=== PATIENT | female | born 1960 ===

== ENCOUNTER 2017-12-03 14:20 | Emergency (ER) | payer OTHER ==
[2017-12-03 14:29] VITALS: BMI 29.2
[2017-12-03 14:32] VITALS: TEMP 98.9; O2SAT 98
--- NOTE | 2017-12-03 15:14 | ED PDOC ---
Arrival/HPI <Senthil Walker - Last Filed: 12/03/17 16:46> <Juan J Carlson - Last Filed: 12/03/17 17:09> - General Chief Complaint: Dizziness/Lightheaded Time Seen by Provider: 12/03/17 14:22 - History of Present Illness Narrative History of Present Illness (Text): Patient is a 57 year old female with PMH of hypothyroidism and fatty liver presenting to the ED with tingling to the right side of the face. Patient states that she went to work today and start feeling tingling that started on her head and radiates only to the left side of her face. Patient also admits to chest tightness when this episodes occur. 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 Patient states that these episodes started this morning and is intermittent. Patient is worried due to a family history of strokes. Her sister had a stroke at age 37 and her father had a stroke at age 36. Patient denies blurry vision, slurring of speech, muscle weakness, ptosis, or other neurological deficits. Patient further denies fevers , chills, shortness of breath, abdominal pain, or urinary symptoms. (Senthil Walker) Past Medical History - Provider Review Nursing Documentation Reviewed: Yes - Travel History Have you recently traveled outside [place] w/in the past 3 mons?: No - Infectious Disease Hx of Infectious Diseases: None - Tetanus Immunization Tetanus Immunization: Unknown - Cardiac Hx Cardiac Disorders: No - Pulmonary Hx Respiratory Disorders: No - Neurological Hx Neurological Disorder: No Hx Headaches: Yes - HEENT Hx HEENT Disorder: No Other/Comment: Reading glasses - Renal Hx Renal Disorder: No - Endocrine/Metabolic Hx Hypothyroidism: Yes (GILL) - Hematological/Oncological Hx Blood Disorders: No - Integumentary Hx Dermatological Disorder: No - Musculoskeletal/Rheumatological Hx Musculoskeletal Disorders: No - Gastrointestinal Hx Gastrointestinal Disorders: Yes Hx Fatty Liver Disease: Yes Other/Comment: Primary Biliary Cihrrosis - Genitourinary/Gynecological Hx Genitourinary Disorders: No - Psychiatric Hx Depression: Yes Hx Substance Use: No - Surgical History Hx Hysterectomy: Yes - Anesthesia Hx Anesthesia: Yes Hx Anesthesia Reactions: No Hx Malignant Hyperthermia: No - Suicidal Assessment Feels Threatened In Home Enviroment: No <Senthil Walker - Last Filed: 12/03/17 16:46> Family/Social History - Physician Review Nursing Documentation Reviewed: Yes Family/Social History: CVA/TIA, Hypertension, Neoplasm/Cancer Smoking Status: Never Smoked Hx Alcohol Use: No Hx Substance Use: No Hx Substance Use Treatment: No <JocyhannySenthil - Last Filed: 12/03/17 16:46> Allergies/Home Meds <Senthil Walker - Last Filed: 12/03/17 16:46> <Juan J Carlson - Last Filed: 12/03/17 17:09> Allergies/Adverse Reactions: Allergies hydromorphone HCl [From Dilaudid] Allergy (Intermediate, Verified 12/03/17 14:33 ) RASH meperidine HCl [From Demerol] Allergy (Intermediate, Verified 12/03/17 14:33) NAUSEA vomitting morphine Allergy (Intermediate, Verified 12/03/17 14:33) RASH Home Medications: Home Meds Medication Instructions Recorded Confirmed Levothyroxine [Synthroid] 88 mcg PO DAILY 12/03/17 12/03/17 Review of Systems - Physician Review All systems were reviewed & negative as marked: Yes - Review of Systems Constitutional: Normal. absent: Fevers, Night Sweats Eyes: Normal. absent: Vision Changes ENT: Normal Respiratory: Normal. absent: SOB, Cough, Wheezing Cardiovascular: Chest Pain (Complains of chest tightness) Gastrointestinal: Normal. absent: Abdominal Pain, Constipation, Diarrhea, Nausea, Vomiting Genitourinary Female: Normal. absent: Dysuria, Frequency, Hematuria Musculoskeletal: Normal Skin: Normal. absent: Rash, Pruritis, Skin Lesions, Laceration Neurological: Headache, Dizziness. absent: Focal Weakness, Speech Changes, Facial Droop Psychiatric: Normal. absent: Anxiety, Depression <Senthil Walker - Last Filed: 12/03/17 16:46> Physical Exam Vital Signs Reviewed: Yes Temperature: Afebrile Blood Pressure: Hypertensive Pulse: Regular Respiratory Rate: Normal Appearance: Positive for: Well-Appearing, Non-Toxic, Comfortable Pain Distress: None Mental Status: Positive for: Alert and Oriented X 3 Finger Stick Blood Glucose: 95 - Systems Exam Head: Present: Atraumatic, Normocephalic Pupils: Present: PERRL Extroacular Muscles: Present: EOMI Conjunctiva: Present: Normal Mouth: Present: Moist Mucous Membranes Respiratory/Chest: Present: Clear to Auscultation, Good Air Exchange. No: Respiratory Distress, Accessory Muscle Use Cardiovascular: Present: Regular Rate and Rhythm, Normal S1, S2. No: Murmurs Abdomen: No: Tenderness, Distention, Peritoneal Signs Upper Extremity: Present: Normal Inspection. No: Cyanosis, Edema Lower Extremity: Present: Normal Inspection. No: Edema Neurological: Present: GCS=15, CN II-XII Intact, Speech Normal, Motor Func Grossly Intact, Normal Sensory Function, Normal Cerebellar Funct, Gait Normal, Memory Normal, Other Skin: Present: Warm, Dry, Normal Color. No: Rashes Psychiatric: Present: Alert, Oriented x 3, Normal Insight, Normal Concentration <Senthil Walker - Last Filed: 12/03/17 16:46> Vital Signs Temp Pulse Resp BP Pulse Ox 12/03/17 16:47 79 18 118/67 98 12/03/17 14:28 98.9 F 85 19 136/85 98 Medical Decision Making <Senthil Walker - Last Filed: 12/03/17 16:46> - RAD Interpretation Seamer Operator: Radiologist <Juan J Carlson - Last Filed: 12/03/17 17:09> ED Course and Treatment: Impression: Patient is a 57 year old female presenting to the ED with tingling to her right face. Differential Diagnosis included but are not limited to: - CVA - TIA Plan: -- CBC -- CMP -- CXR -- Troponin -- EKG -- TSH -- Free T4 Progress Notes: 12/03/17 16:24 - CXR: No acute disease - Head CT: Normal head CT. No change to prior studies done in 09/06/2015 - AST/ALT: 64/87 12/03/17 16:37 - Patient will be referred to a neurologist by Dr. Ontiveros. Patient is stable for discharge. (Senthil Walker) 12/03/17 15:53 Seen and examined with the resident. Our history and physical exam reveals a young woman complaining of a left sided headache which radiated into her left jaw left neck and left chest. She had 2 episodes. The first episode this morning lasted for approximately 2 minutes. She had a second episode this afternoon which lasted for approximately 1 minute. She has also been experiencing dizziness which has since resolved. No dyspnea or palpitations. She does not appear ill or uncomfortable. She was seen in the office by Dr. Ontiveros who directed her to the emergency department for a CT scan of the head. 12/03/17 16:01 EKG shows normal sinus rhythm rate approximately [address] or T-wave changes. 12/03/17 17:08 There is no right sided facial tingling as in the resident note. There is no chest tightness as in the resident's note. (Juan J Carlson) - Lab Interpretations Lab Results: 12/03/17 15:18 12/03/17 15:18 Lab Results 12/03/17 15:18: Free T4 0.84, TSH 3rd Generation 3.46 12/03/17 15:18: Sodium 141, Potassium 4.3, Chloride 107, Carbon Dioxide 26, Anion Gap 13, BUN 13, Creatinine 0.7, Est GFR ( Amer) > 60, Est GFR (Non- Af Amer) > 60, Random Glucose 94, Calcium 9.5, Total Bilirubin 0.5, AST 64 H D, ALT 87 H, Alkaline Phosphatase 106, Troponin I < 0.01, Total Protein 7.8, Albumin 4.6, Globulin 3.1, Albumin/Globulin Ratio 1.5 12/03/17 15:18: WBC 7.9 D, RBC 4.66, Hgb 14.0, Hct 42.2, MCV 90.6, MCH 30.0, MCHC 33.2, RDW 13.5, Plt Count 283, MPV 10.1, Gran % 58.2, Lymph % (Auto) 33.8, Raw[place]ins % (Auto) 5.5, Eos % (Auto) 1.7, Baso % (Auto) 0.8, Gran # 4.59, Lymph # ( Auto) 2.7, [place] # (Auto) 0.4, Eos # (Auto) 0.1, Baso # (Auto) 0.06 12/03/17 14:54: POC Glucose (mg/dL) 95 - RAD Interpretation Radiology Orders: 12/03/17 15:07 HEAD W/O CONTRAST [CT] Stat 12/03/17 15:11 CXR [CHEST PORTABLE] [RAD] Stat CT scan of the head as read by the radiologist shows no acute findings. X-ray chest one view as read by the radiologist shows no acute findings. ( Juan J Carlson) Disposition/Present on Arrival - Present on Arrival Any Indicators Present on Arrival: No History of DVT/PE: No History of Uncontrolled Diabetes: No Urinary Catheter: No History of Decub. Ulcer: No History Surgical Site Infection Following: None - Disposition Have Diagnosis and Disposition been Completed?: Yes Disposition Time: 16:39 Patient Plan: Discharge <JocyhannySenthil - Last Filed: 12/03/17 16:46> <Juan J Carlson - Last Filed: 12/03/17 17:09> - Disposition Diagnosis: Facial tingling sensation Disposition: HOME/ ROUTINE Condition: GOOD Discharge Instructions (ExitCare): Paresthesias (DC) Additional Instructions: CAROL HOBBS, thank you for letting us take care of you today. Your provider was Luis Enrique Carlson MD and you were treated for left sided facial tingling. The emergency medical care you received today was directed at your acute symptoms. If you were prescribed any medication, please fill it and take as directed. It may take several days for your symptoms to resolve. Return to the Emergency Department if your symptoms worsen, do not improve, or if you have any other problems. Please contact your doctor or call one of the physicians/clinics you have been referred to that are listed on the Patient Visit Information form that is included in your discharge packet. Bring any paperwork you were given at discharge with you along with any medications you are taking to your follow up visit. Our treatment cannot replace ongoing medical care by a primary care provider outside of the emergency department. Thank you for allowing the [facility] team to be part of your care today. 1. Please follow up with your primary care doctor, Dr. Ontiveros. Get a referral for a neurologist. 2. Return to ED for worsening or newly concerning symptoms. Referrals: Remy Ontiveros, [Family Provider] - Follow up with primary Forms: Twilio (Swedish), WORK NOTE
--- NOTE | 2017-12-03 15:53 | RAD ---
Date of service: 12/03/2017 HISTORY: chest pain COMPARISON: 10/17/2015 FINDINGS: LUNGS: No active pulmonary disease. PLEURA: No significant pleural effusion identified, no pneumothorax apparent. CARDIOVASCULAR: Normal. OSSEOUS STRUCTURES: No significant abnormalities. VISUALIZED UPPER ABDOMEN: Normal. OTHER FINDINGS: None. IMPRESSION: No active disease.
[2017-12-03 15:55] LABS: BASO # 0.06 K/mm3 (0.0-2.0); BASO % 0.8 % (0.0-3.0); EOS # 0.1 (0.0-0.7); EOS % 1.7 % (1.5-5.0); GRAN # 4.59 (1.4-6.5); GRAN % 58.2 % (50.0-68.0); LYMPH # 2.7 (1.2-3.4); LYMPH % 33.8 % (22.0-35.0); MEAN CELL VOLUME 90.6 fl (80.0-105.0); MEAN CORPUSCULAR HGB CONC 33.2 g/dl (31.0-37.0); MEAN PLATELET VOLUME 10.1 fl (7.0-11.0); MONO # 0.4 (0.1-0.6); MONO % 5.5 % (1.0-6.0); RBC 4.66 10^6/uL (3.5-6.1); RED CELL DISTRIBUTION WIDTH 13.5 % (11.5-14.5); WHITE BLOOD COUNT 7.9 10^3/ul (4.5-11.0)
--- NOTE | 2017-12-03 15:56 | CT ---
Date of service: 12/03/2017 PROCEDURE: CT HEAD WITHOUT CONTRAST. HISTORY: Dizziness COMPARISON: Noncontrast head CT 09/06/2015. TECHNIQUE: Axial computed tomography images were obtained through the head/brain without intravenous contrast. Radiation dose: Total exam DLP = 914.28 mGy-cm. This CT exam was performed using one or more of the following dose reduction techniques: Automated exposure control, adjustment of the mA and/or kV according to patient size, and/or use of iterative reconstruction technique. FINDINGS: HEMORRHAGE: No intracranial hemorrhage. BRAIN: Normal muhammad-white matter differentiation and density are appreciated throughout the cerebrum and cerebellum with the brainstem appearing unremarkable as well. There is no mass effect. There is no suspicious extra-axial fluid collection and the midline brain anatomy appears diffusely unremarkable. VENTRICLES: Unremarkable. No hydrocephalus. CALVARIUM: Unremarkable. PARANASAL SINUSES: Unremarkable as visualized. No significant inflammatory changes. MASTOID AIR CELLS: Unremarkable as visualized. No inflammatory changes. OTHER FINDINGS: None. IMPRESSION: Normal CT of the Head. No significant interval change compared to prior CT 09/06/2015.
[2017-12-03 15:57] LABS: ALB/GLOB RATIO 1.5 (1.1-1.8); ALBUMIN 4.6 g/dL (3.0-4.8); CALCIUM 9.5 mg/dL (8.4-10.5); GFR NON-AFRICAN AMERICAN > 60
[2017-12-03 16:10] LABS: TROPONIN I < 0.01 ng/mL
[2017-12-03 16:14] LABS: FREE T4 0.84 ng/dL (0.78-2.19)
[2017-12-03 16:20] LABS: ALT/SGPT 87 U/L (7-56); AST/SGOT 64 U/L (14-36); BLOOD UREA NITROGEN 13 mg/dL (7-21)
[2017-12-03 16:47] VITALS: BP 118/67; PULSE 79; RESP 18
--- NOTE | 2017-12-03 18:28 | CARD ---
APPROVED REPORT Date of service: 12/03/2017 EKG Measurement Heart [id number] ID [id number] <Conclusion> Normal sinus rhythm Normal ECG
== END 2017-12-03 16:47 | disposition home or self-care (01) ==
LOC: ED 14:20
DX: R20.2 Paresthesia of skin (principal)

== ENCOUNTER 2018-06-10 11:41 | Outpatient (CLI) | payer OTHER | END 2018-06-10 11:42 | disposition home or self-care (01) | LOC: LAB 11:41 | DX: M54.16 Radiculopathy, lumbar region (principal) ==

== ENCOUNTER 2018-06-14 07:44 | Outpatient (CLI) | payer OTHER | END 2018-06-14 07:45 | disposition home or self-care (01) | LOC: RAD 07:44 | DX: M54.16 Radiculopathy, lumbar region (principal) ==